=== PATIENT | female | born 1940 | race Caucasian/White ===

== ENCOUNTER 2022-11-07 11:14 | Inpatient (IN) | payer MEDICARE, OTHER ==
[2022-11-07] VITALS (8 sets, daily range): BP systolic 129–184; BP diastolic 60–85
[~2022-11-07 11:14] MED LIST: ANAS1TAB50 PO; ATOR40TA28 PO; CHOL200059 PO; FERR325T27 PO; FOLI-130 PO; FURO20 PO; GLYB-145 PO; LEVO100 PO; MELO-381 PO; METH2.5 PO; PIOG15TA6 PO; SACU1TAB PO; SEMA7TAB2 PO; SODIUM CHLORIDE 0.9% 1,000 ML ONE; TIZA-211 PO
[2022-11-07] MEDS ORDERED: SODIUM CHLORIDE 0.9% 1,000 ML IV ONE (11:30)
[2022-11-07] MEDS ORDERED: DiphenhydrAMINE HCL 50 MG CAPSULE ONE (11:44)
[2022-11-07] MEDS ORDERED: DIAZEPAM 5 MG TABLET ONE (11:44)
[2022-11-07] MEDS ORDERED: ASPIRIN 81 MG CHEWABLE TABLET ONE ×2 (11:45→14:08)
[2022-11-07 12:06] LABS: GLUCOMETER DEV NAME(LOC) SDS.; GLUCOSE,POINT OF CARE 126 MG/DL (70-110)
[2022-11-07] MEDS ORDERED: FentaNYL CITRATE PF 100 MCG/2 ML VIAL ONE (12:16)
[2022-11-07] MEDS ORDERED: MIDAZOLAM HCL 2 MG/2 ML VIAL ONE (12:17)
[2022-11-07] MEDS ORDERED: LIDOCAINE/PF 1% 30 ML VIAL ONE (12:17)
[2022-11-07] MEDS ORDERED: IOHEXOL 300 MG/ML 100 ML VIAL ONE (12:17)
[2022-11-07] MEDS ORDERED: SODIUM BICARBONATE 50 MEQ/50 ML VIAL ONE (12:17)
[2022-11-07] MEDS ORDERED: HEPARIN SODIUM 1000 UNITS/NS 1,000 ML ONE (12:17)
[2022-11-07] MEDS ORDERED: DIAZEPAM 5 MG TABLET PO ONE (12:30)
[2022-11-07] MEDS ORDERED: ASPIRIN 81 MG CHEWABLE TABLET PO ONE ×3 (12:30→14:15)
[2022-11-07] MEDS ORDERED: DiphenhydrAMINE HCL 50 MG CAPSULE PO ONE (12:30)
[2022-11-07] MEDS ORDERED: HydrALAZINE HCL 20 MG/ML VIAL ONE (12:56)
[2022-11-07] MEDS ORDERED: TIZA-194 PO (12:58)
[2022-11-07] MEDS ORDERED: IOHEXOL 300 MG/ML 100 ML VIAL IARTER ONE ×2 (13:00→13:45)
[2022-11-07] MEDS ORDERED: MIDAZOLAM HCL 2 MG/2 ML VIAL IVP ONE (13:00)
[2022-11-07] MEDS ORDERED: FentaNYL CITRATE PF 100 MCG/2 ML VIAL IVP ONE ×2 (13:00→14:15)
[2022-11-07] MEDS ORDERED: LIDOCAINE 1% 30 ML/SOD BICARB 8.4% 4 ML SQ ONE (13:00)
[2022-11-07] MEDS ORDERED: HEPARIN SODIUM 1000 UNITS/NS 1,000 ML IARTER ONE (13:00)
[2022-11-07] MEDS ORDERED: METOPROLOL TARTRATE 5 MG/5 ML VIAL ONE (13:05)
[2022-11-07] MEDS ORDERED: METOPROLOL TARTRATE 5 MG/5 ML VIAL IVP ONE (13:15)
[2022-11-07] MEDS ORDERED: HEPARIN SODIUM,PORCINE 1,000 UNITS/ML 10 ML VIAL IVP ONE (13:15)
[2022-11-07] MEDS ORDERED: HydrALAZINE HCL 20 MG/ML VIAL IVP ONE (13:15)
[2022-11-07] MEDS ORDERED: TICAGRELOR 90 MG TABLET ONE (14:06)
[2022-11-07] MEDS ORDERED: TICAGRELOR 90 MG TABLET PO ONE (14:15)
[2022-11-07] MEDS ORDERED: DEXTROSE 50%-WATER 25 GM/50 ML SYRINGE IVP PRN (14:45)
[2022-11-07] MEDS ORDERED: HydrALAZINE HCL 20 MG/ML VIAL IVP PRN (14:45)
[2022-11-07] MEDS ORDERED: TraZODone HCL 50 MG TABLET PO PRN (14:45)
[2022-11-07] MEDS ORDERED: NITROGLYCERIN 0.4 MG SUBLINGUAL TABLET #25 SL PRN (15:00)
[2022-11-07] MEDS ORDERED: ONDANSETRON HCL 4 MG/2 ML VIAL IVP PRN (15:00)
[2022-11-07] MEDS ORDERED: BISACODYL 10 MG RECTAL RECTAL SUPPOSITORY PR PRN (15:00)
[2022-11-07] MEDS ORDERED: 0.9% SODIUM CHLORIDE 10 ML SYRINGE IVP PRN (15:00)
[2022-11-07] MEDS ORDERED: IPRATROPIUM BROMIDE 0.5 MG/2.5 ML NEB SOLUTION NEB PRN (15:00)
[2022-11-07] MEDS ORDERED: ALBUTEROL SULFATE 2.5 MG/0.5 ML NEB SOLUTION NEB PRN (15:00)
[2022-11-07] MEDS ORDERED: ACETAMINOPHEN 325 MG TABLET PO PRN (15:00)
[2022-11-07] MEDS: SACUBITRIL/VALSARTAN 24-26 MG TABLET PO SCH (20:18)
[2022-11-07] MEDS: TICAGRELOR 90 MG TABLET PO SCH (20:18)
[2022-11-07] MEDS: DOCUSATE SODIUM 100 MG CAPSULE PO SCH (20:19)
[2022-11-07] MEDS: ATORVASTATIN CALCIUM 40 MG TABLET PO SCH (20:19)
[2022-11-07] MEDS: METOPROLOL TARTRATE 25 MG TABLET PO SCH (20:19)
[2022-11-07] MEDS: TiZANidine HCL 4 MG TABLET PO SCH (20:22)
[2022-11-07] MEDS: INSULIN LISPRO 100 UNITS/ML SQ PRN (20:23)
[2022-11-07] MEDS ORDERED: SODIUM CHLORIDE 0.65% 44 ML NASAL SPRAY NASAL PRN (22:45)
[2022-11-08] VITALS (7 sets, daily range): BP systolic 102–143; BP diastolic 45–62
[2022-11-08 03:56] LABS: GLUCOMETER DEV NAME(LOC) 5N.2C; GLUCOSE,POINT OF CARE 192 MG/DL (70-110)
[2022-11-08] MEDS: LEVOTHYROXINE SODIUM 100 MCG TABLET PO SCH (05:56)
[2022-11-08 06:43] LABS: EOSINOPHILS % (AUTO) 0.2 % (1.0-6.0); HEMOGLOBIN 11.2 g/dL (12.0-16.0); LYMPHOCYTES # (AUTO) 1.1 K/uL (1.0-4.8); MEAN CORPUSCULAR VOLUME 91 fL (80-100); MONOCYTES # (AUTO) 0.5 K/uL (0.1-1.0); NEUTROPHILS # (AUTO) 6.3 K/uL (1.8-7.7); NEUTROPHILS % (AUTO) 79.8 % (40.0-70.0); PLATELET COUNT (AUTO) 230 K/uL (150-450); RED BLOOD CELL COUNT(AUTO) 3.62 MIL/uL (4.00-5.20); RED CELL DISTRIBUTION WIDTH 15.5 % (11.5-14.5)
[2022-11-08 07:48] LABS: ALANINE AMINOTRANSFERASE 20 U/L (12-78); ALKALINE PHOSPHATASE 86 U/L (46-116); ANION GAP 9 mmol/L (8-16); ASPARTATE AMINOTRANSFERASE 21 U/L (15-37); BILIRUBIN,TOTAL 0.6 mg/dL (0.1-1.0); CARBON DIOXIDE 23 mmol/L (22-29); CHLORIDE 105 mmol/L (98-107); CREATININE 0.69 mg/dL (0.60-1.30); GLOMERULAR FILTR. RATE CALC > 60 mL/min (>60); GLUCOSE,RANDOM 113 mg/dL (70-110); POTASSIUM 3.9 mmol/L (3.5-5.1); SODIUM SERUM 137 mmol/L (136-145); TOTAL PROTEIN, SERUM 6.7 g/dL (6.4-8.2)
[2022-11-08] MEDS: METOPROLOL TARTRATE 25 MG TABLET PO SCH ×2 (09:33→20:22)
[2022-11-08] MEDS: DOCUSATE SODIUM 100 MG CAPSULE PO SCH ×2 (09:33→20:20)
[2022-11-08] MEDS: FERROUS SULFATE 325 MG EC TABLET PO SCH ×2 (09:34→17:46)
[2022-11-08] MEDS: TICAGRELOR 90 MG TABLET PO SCH ×2 (09:34→20:22)
[2022-11-08] MEDS: FOLIC ACID 1 MG TABLET PO SCH (09:34)
[2022-11-08] MEDS: ASPIRIN 81 MG CHEWABLE TABLET PO SCH (09:34)
[2022-11-08] MEDS: PANTOPRAZOLE SODIUM 40 MG DR TABLET PO SCH (09:34)
[2022-11-08] MEDS: SACUBITRIL/VALSARTAN 24-26 MG TABLET PO SCH ×2 (09:35→21:31)
[2022-11-08] MEDS: TiZANidine HCL 4 MG TABLET PO SCH ×2 (09:35→20:22)
[2022-11-08] MEDS: ANASTROZOLE 1 MG TABLET PO SCH (09:36)
[2022-11-08] MEDS: CHOLECALCIFEROL (VIT D3) 2,000 UNITS [50 MCG] TABLET PO SCH (09:36)
[2022-11-08] MEDS: INSULIN LISPRO 100 UNITS/ML SQ PRN ×2 (12:44→20:24)
[2022-11-08] MEDS ORDERED: LEVO100 PO (13:39)
[2022-11-08] MEDS ORDERED: METO25 PO (13:39)
[2022-11-08] MEDS ORDERED: TICA90TA PO (13:39)
[2022-11-08] MEDS ORDERED: ATOR40TA71 PO (13:39)
[2022-11-08] MEDS ORDERED: ASPI81 PO (13:39)
[2022-11-08 19:46] LABS: GLUCOMETER DEV NAME(LOC) 5S.2C; GLUCOSE,POINT OF CARE 108 MG/DL (70-110)
[2022-11-08 19:46] LABS: GLUCOMETER DEV NAME(LOC) 5N.1C; GLUCOSE,POINT OF CARE 93 MG/DL (70-110)
[2022-11-08 19:46] LABS: GLUCOMETER DEV NAME(LOC) 5N.1C; GLUCOSE,POINT OF CARE 150 MG/DL (70-110)
[2022-11-08] MEDS: ATORVASTATIN CALCIUM 40 MG TABLET PO SCH (20:20)
[2022-11-08 21:06] LABS: GLUCOMETER DEV NAME(LOC) 5S.2C; GLUCOSE,POINT OF CARE 144 MG/DL (70-110)
[2022-11-09 05:03] VITALS: BP 149/60
[2022-11-09] MEDS: LEVOTHYROXINE SODIUM 100 MCG TABLET PO SCH (05:20)
[2022-11-09 07:40] VITALS: BP 129/54
[2022-11-09] MEDS: METOPROLOL TARTRATE 25 MG TABLET PO SCH (08:24)
[2022-11-09] MEDS: PANTOPRAZOLE SODIUM 40 MG DR TABLET PO SCH (08:25)
[2022-11-09] MEDS: ASPIRIN 81 MG CHEWABLE TABLET PO SCH (08:25)
[2022-11-09] MEDS: TICAGRELOR 90 MG TABLET PO SCH (08:25)
[2022-11-09] MEDS: SACUBITRIL/VALSARTAN 24-26 MG TABLET PO SCH (08:25)
[2022-11-09] MEDS: TiZANidine HCL 4 MG TABLET PO SCH (08:26)
[2022-11-09] MEDS: CHOLECALCIFEROL (VIT D3) 2,000 UNITS [50 MCG] TABLET PO SCH (08:26)
[2022-11-09] MEDS: DOCUSATE SODIUM 100 MG CAPSULE PO SCH (08:26)
[2022-11-09] MEDS: FOLIC ACID 1 MG TABLET PO SCH (08:26)
[2022-11-09] MEDS: FERROUS SULFATE 325 MG EC TABLET PO SCH (08:26)
[2022-11-09] MEDS: ANASTROZOLE 1 MG TABLET PO SCH (08:27)
[2022-11-09 11:51] LABS: GLUCOMETER DEV NAME(LOC) 5N.1C; GLUCOSE,POINT OF CARE 109 MG/DL (70-110)
[2022-11-14] MEDS ORDERED: METHOTREXATE SODIUM 2.5 MG TABLET PO SCH (09:00)
== END 2022-11-09 13:15 | disposition home or self-care (01) | DRG 246 ==
LOC: CATHLAB 11:14 → 5S 18:15
PROVIDERS: ADMIT Internal Medicine Interventional Cardiology; ATTEND Internal Medicine Interventional Cardiology
PROC: 027037Z Dilation of Coronary Artery, One Artery with Four or More Drug-eluting Intraluminal Devices, Percutaneous Approach (ICD-10-PCS; principal; 2022-11-07)
PROC: 4A023N7 Measurement of Cardiac Sampling and Pressure, Left Heart, Percutaneous Approach (ICD-10-PCS; 2022-11-07)
PROC: B211YZZ Fluoroscopy of Multiple Coronary Arteries using Other Contrast (ICD-10-PCS; 2022-11-07)
PROC: B215YZZ Fluoroscopy of Left Heart using Other Contrast (ICD-10-PCS; 2022-11-07)
PROC: B51BYZZ Fluoroscopy of Right Lower Extremity Veins using Other Contrast (ICD-10-PCS; 2022-11-07)
DX: I25.10 Atherosclerotic heart disease of native coronary artery without angina pectoris (principal); E11.9 Type 2 diabetes mellitus without complications; I10 Essential (primary) hypertension; Z79.899 Other long term (current) drug therapy; D50.9 Iron deficiency anemia, unspecified; E03.9 Hypothyroidism, unspecified; E78.5 Hyperlipidemia, unspecified; Z79.02 Long term (current) use of antithrombotics/antiplatelets; Z79.84 Long term (current) use of oral hypoglycemic drugs; Z88.0 Allergy status to penicillin; Z79.811 Long term (current) use of aromatase inhibitors; Z79.82 Long term (current) use of aspirin
CPT/HCPCS: 75960; 80053; 82962; 85025; 92920; 92928; 93005; J0360; J1644; J2250; J3010; J3490; J7030; Q9967; 36415-L1; 36415-TC